=== PATIENT | female | born 1980 | race Caucasian/White ===

== ENCOUNTER 2016-04-11 14:50 | Emergency (ER) | payer OTHER ==
[~2016-04-11 14:50] MED LIST: ALBUTEROL IN200 PUFF INH; AUGMENTIN 500-1 EACH PO; BACTRIM DS TAB1 EACH PO; CELEXA10 MG PO; CYMBALTA30 MG PO; FERROUS GLUCON325 MG PO; FOLIC ACID0.8 MG PO; GABAPENTIN600 MG PO; HYDROCODON-ACE1 EAC4 PO; LAXATIVE5 MG PO; MOTRIN600 MG PO; NEURONTIN600 MG PO; NICODERM 14MG PA1 EA TD; PROMETHAZINE HC25 M1 PO; QUETIAPINE FUM100 MG PO; TIZANIDINE HCL4 MG PO; TOPAMAX25 MG PO; VISTARIL25 MG PO; ZYRTEC10 MG PO
== END 2016-04-11 16:36 | disposition home or self-care (01) ==
LOC: ER 14:50
DX: M54.2 Cervicalgia (principal); M54.9 Dorsalgia, unspecified; G89.29 Other chronic pain; F31.9 Bipolar disorder, unspecified; E07.9 Disorder of thyroid, unspecified; Z86.19 Personal history of other infectious and parasitic diseases; F17.210 Nicotine dependence, cigarettes, uncomplicated; Z88.5 Allergy status to narcotic agent; Z88.6 Allergy status to analgesic agent; Z88.1 Allergy status to other antibiotic agents; Z79.899 Other long term (current) drug therapy
CPT/HCPCS: 72125; 72128; 99283-25; J8597